=== PATIENT | female | born 1975 | race African-American/Black ===

== ENCOUNTER 2019-05-05 17:01 | Inpatient (IN) | payer OTHER ==
[~2019-05-05] VITALS: Ht 172.7 cm; Wt 63.5 kg
[2019-05-05] MEDS ORDERED: ALBUTEROL SULFATE 2.5 MG/3 ML NEBU ONE ×3 (17:08→19:04)
[2019-05-05] MEDS ORDERED: IPRATROPIUM BROMIDE 0.5 MG/2.5 ML NEBU ONE ×3 (17:08→19:04)
--- NOTE | 2019-05-05 17:12 | NUR ---
PT IS A/OX4, PRESENTS TO THE ER C/O SOB. PT IS UNABLE TO SPEAK IN FULL SENTENCES - 2/3 WORD PHRASES DUE TO SOB. PT REPORTS BEING "SICK" SINCE DECEMBER OF 2018 AND HAS BEEN HAVING EPISODES OF SOB SINCE. THIS TIME, ONSET OF SOB BEGAN APPROXIMATELY 3 DAYS AGO. PT IS HYPERTENSIVE AND TACHYPNIC AT RR 30. ER AWARE. PT ADMIN O2 3 LPM VIA N/C.
[2019-05-05] MEDS ORDERED: IPRATROPIUM BROMIDE 0.5 MG/2.5 ML NEBU NEB ONE ×3 (17:15→19:00)
[2019-05-05] MEDS ORDERED: ALBUTEROL SULFATE 2.5 MG/3 ML NEBU NEB ONE ×3 (17:15→19:00)
[2019-05-05 17:37] LABS: BASOPHILS # (AUTO) 0.1 K/uL (0.0-8.0); EOSINOPHILS # (AUTO) 0.5 K/uL (0.0-0.7); HEMATOCRIT 44.6 % (31.2-41.9); HEMOGLOBIN 14.8 g/dL (10.9-14.3); LYMPHOCYTES # (AUTO) 1.5 K/uL (20.0-40.0); LYMPHOCYTES % (AUTO) 13.1 % (20.5-51.5); MEAN CORPUSCULAR HEMOGLOBIN 29.5 uug (24.7-32.8); MEAN CORPUSCULAR HGB CONC 33 g/dL (32.3-35.6); MEAN CORPUSCULAR VOLUME 89.4 fL (75.5-95.3); MONOCYTES # (AUTO) 1.1 K/uL (2.0-10.0); MONOCYTES % (AUTO) 9.3 % (0.0-11.0); NEUTROPHILS # (AUTO) 8.4 K/uL (1.8-8.9); NEUTROPHILS % (AUTO) 72.6 % (38.5-71.5); PLATELET COUNT (AUTO) 302 K/uL (179-408); RED BLOOD CELL COUNT(AUTO) 4.99 MIL/uL (3.63-4.92); WHITE BLOOD COUNT (AUTO) 11.6 K/uL (3.8-11.8)
[2019-05-05] MEDS ORDERED: LEVOFLOXACIN 750 MG/D5W 150 ML PIGGYBACK IV ONE (17:45)
[2019-05-05] MEDS ORDERED: methylPREDNISolone SOD SUCC 125 MG/2 ML VIAL IV ONE (17:45)
[2019-05-05 17:46] LABS: CREATININE 1.1 mg/dL (0.6-1.3); POTASSIUM 3.3 mmol/L (3.5-5.1)
[2019-05-05] MEDS ORDERED: methylPREDNISolone SOD SUCC 125 MG/2 ML VIAL ONE (17:50)
[2019-05-05] MEDS ORDERED: LEVOFLOXACIN 750MG/D5W 150 ML IV ONE (17:50)
[2019-05-05 17:58] LABS: BILIRUBIN,DIRECT 0.1 mg/dL (0.0-0.2); BILIRUBIN,TOTAL 0.5 mg/dL (0.2-1.0); TOTAL PROTEIN, SERUM 7.9 g/dL (6.4-8.2)
[2019-05-05] MEDS ORDERED: hydrALAZINE HCL 20 MG/1 ML VIAL IV ONE (18:00)
[2019-05-05] MEDS ORDERED: hydrALAZINE HCL 20 MG/1 ML VIAL ONE (18:04)
[2019-05-05] MEDS ORDERED: HYDROCODONE/APAP 5-325MG TABLET PO ONE (19:00)
[2019-05-05] MEDS ORDERED: HYDROCODONE/APAP 5-325MG TABLET ONE (19:01)
[2019-05-05] MEDS ORDERED: BENA20TA9 PO (19:03)
[2019-05-05] MEDS ORDERED: HYDR50TA3 PO (19:03)
[2019-05-05] MEDS ORDERED: FLUO-120 PO (19:03)
[2019-05-05] MEDS ORDERED: ALBUTEROL SULFATE 2.5 MG/ 0.5 ML NEBU ONE (19:05)
--- NOTE | 2019-05-05 19:12 | NUR ---
SHIFT REPORT GIVEN TO ANDREW Luna RN.
[2019-05-05] MEDS ORDERED: Z GUARD REMEDY PASTE 57 GM TUBE TOP PRN (20:00)
[2019-05-05] MEDS ORDERED: MAGNESIUM HYDROXIDE 30 ML LIQUID UDC PO PRN (20:00)
[2019-05-05] MEDS ORDERED: ACETAMINOPHEN 325 MG TABLET PO PRN (20:00)
[2019-05-05] MEDS ORDERED: ONDANSETRON 4 MG/2 ML VIAL IV PRN (20:00)
--- NOTE | 2019-05-05 20:00 | NUR ---
Dr. Bryant at bedside for evaluation.
[2019-05-05 20:02] VITALS: BP 163/94
[2019-05-05 20:09] LABS: *URINE HCG, QUAL NEGATIVE (NEGATIVE)
--- NOTE | 2019-05-05 20:16 | NUR ---
Report given to JOSY Mahoney
--- NOTE | 2019-05-05 20:30 | NUR ---
Patient transported to TELE in stable condition.
[2019-05-05] MEDS: IV 1/2NS 1000 ML 1,000 ML IV PRN (21:01)
[2019-05-05] MEDS: methylPREDNISolone SOD SUCC 40 MG/ML VIAL IV SCH (21:39)
[2019-05-05] MEDS: GUAIFENESIN LA 600 MG TABLET.SA PO SCH (21:39)
[2019-05-05] MEDS ORDERED: methylPREDNISolone SOD SUCC 125 MG/2 ML VIAL IV SCH (22:00)
[2019-05-05] MEDS: HYDROCODONE/APAP 5-325MG TABLET PO PRN (22:24)
[2019-05-05 23:16] LABS: ABG BASE EXCESS 0.8 mmol/L; ABG PCO2 38.5 mmHg (35.0-45.0); ABG PO2 66.9 mmHg (75.0-100.0); ABG SITE RIGHT RADIAL; ABG TOTAL HEMOGLOBIN 15.3 G/dL (12.0-16.0); COHb 1.4 % (0.5-1.5); MetHb 0.3 % (0.0-1.5); O2Hb 91.8 % (94.0-97.0); VENT MODE Nasal Cannula
[2019-05-06 01:04] VITALS: BP 168/98
[2019-05-06] MEDS: IV 1/2NS 1000 ML 1,000 ML IV PRN (04:29)
[2019-05-06] MEDS: methylPREDNISolone SOD SUCC 40 MG/ML VIAL IV SCH ×3 (05:24→22:30)
[2019-05-06] MEDS: HYDROCODONE/APAP 10-325 MG TABLET PO PRN ×2 (05:25→15:57)
[2019-05-06] MEDS: IPRATROPIUM BROMIDE 0.5 MG/2.5 ML NEBU NEB PRN ×3 (05:34→23:07)
[2019-05-06] MEDS: ALBUTEROL SULFATE 2.5 MG/3 ML NEBU NEB PRN ×3 (05:34→23:08)
[2019-05-06] MEDS ORDERED: CLONIDINE HCL 0.1 MG TABLET PO ONE (05:45)
[2019-05-06 06:21] VITALS: BP 181/112
--- NOTE | 2019-05-06 06:24 | NUR ---
Patient rested fairly; c/o pain 2x and addressed accordingly; BP this AM is elevated at 180/110, referred to MARTINEZ Rucker and ordered clonidine PO x1; assisted with needs; HHN per RT remains on O2 mask at 10 liters with pt taking it off occasionally; needs attended; continue to monitor.
[2019-05-06 07:12] LABS: BASOPHILS % (AUTO) 0.3 % (0.0-2.0); HEMATOCRIT 43.5 % (31.2-41.9); HEMOGLOBIN 14.7 g/dL (10.9-14.3); LYMPHOCYTES # (AUTO) 0.8 K/uL (20.0-40.0); LYMPHOCYTES % (AUTO) 13.2 % (20.5-51.5); MEAN CORPUSCULAR HEMOGLOBIN 29.9 uug (24.7-32.8); MEAN CORPUSCULAR HGB CONC 34 g/dL (32.3-35.6); MEAN CORPUSCULAR VOLUME 88.5 fL (75.5-95.3); MONOCYTES # (AUTO) 0.1 K/uL (2.0-10.0); MONOCYTES % (AUTO) 1.3 % (0.0-11.0); NEUTROPHILS # (AUTO) 5.1 K/uL (1.8-8.9); NEUTROPHILS % (AUTO) 85.2 % (38.5-71.5); PLATELET COUNT (AUTO) 334 K/uL (179-408); RED BLOOD CELL COUNT(AUTO) 4.92 MIL/uL (3.63-4.92)
[2019-05-06 07:24] LABS: CREATININE 1.1 mg/dL (0.6-1.3); MAGNESIUM 1.8 mg/dL (1.8-2.4); PHOSPHOROUS 4.3 mg/dL (2.5-4.9); POTASSIUM 3.8 mmol/L (3.5-5.1)
--- NOTE | 2019-05-06 07:25 | NUR ---
RECEIVED PATIENT LAYING IN BED.PATIENT ALERT AND ORIENTED X4. NO ACUTE DISTRESS NOTED AT THIS TIME. PATIENT DENIES PAIN AND DISCOMFORT. BED IN LOWEST POSITION, SIDE RAILS UP X2, CALL LIGHT WITHIN REACH. WILL CONTINUE TO MONITOR.
[2019-05-06 07:37] LABS: THYROID STIMULATING HORMONE 0.314 mIU/mL (0.358-3.740)
[2019-05-06] MEDS: GUAIFENESIN LA 600 MG TABLET.SA PO SCH ×2 (08:35→20:33)
[2019-05-06] MEDS: HYDROCODONE/APAP 5-325MG TABLET PO PRN (10:50)
[2019-05-06 11:10] VITALS: BP 143/80
[2019-05-06] MEDS: AZITHROMYCIN IV 500 MG in IV DEXTROSE 5% 250 ML IV SCH (17:15)
[2019-05-06] MEDS: CEFTRIAXONE 1 G in IV DEXTROSE 5% 50 ML IV SCH (18:10)
[2019-05-06 18:31] VITALS: BP 139/97
--- NOTE | 2019-05-06 18:39 | NUR ---
PATIENT RESTED THROUGHOUT SHIFT. NO ACUTE DISTRESS NOTED THROUGHOUT SHIFT. PATIENT REPORTED PAIN, PRN MEDIATION GIVE. PATIENT RECEIVED BREATHING TREATMENT Q6HRS.
--- NOTE | 2019-05-06 19:30 | NUR ---
Received patient in bed AAOx4. On O2 at 8Lpm via mask saturating at 97%. Patient still noted w/ episode of coughing. No complaints of pain at this time. IV site on L AC intact and patent w/ IVF infusing. Safety measures observed. Call light within reach
[2019-05-06] MEDS: CULTURELLE CAPSULE PO SCH (20:33)
[2019-05-06 23:11] VITALS: BP 152/92
[2019-05-07] MEDS: IV 1/2NS 1000 ML 1,000 ML IV PRN ×2 (00:32→17:41)
[2019-05-07] MEDS: HYDROCODONE/APAP 10-325 MG TABLET PO PRN ×2 (03:22→21:57)
--- NOTE | 2019-05-07 04:05 | NUR ---
Patient complained of 8/10 generalized body pain, PRN [place] 10-325mg PO given.
[2019-05-07 05:28] VITALS: BP 157/94
[2019-05-07] MEDS: methylPREDNISolone SOD SUCC 40 MG/ML VIAL IV SCH ×3 (05:46→21:57)
--- NOTE | 2019-05-07 06:22 | NUR ---
Patient slept intermittently. No SOB noted, not in distress. Breathing tx given Q6. All needs attended. Will endorse accordingly.
--- NOTE | 2019-05-07 07:20 | NUR ---
RECEIVED PATIENT LAYING IN BED SLEEPING. NO ACUTE DISTRESS NOTED AT THIS TIME. PATIENT DENIES PAIN AND DISCOMFORT. BED IN LOWEST POSITION, SIDE RAILS UP X2, CALL LIGHT WITHIN REACH. WILL CONTINUE TO MONITOR.
[2019-05-07] MEDS: GUAIFENESIN LA 600 MG TABLET.SA PO SCH ×2 (08:26→20:13)
[2019-05-07] MEDS: CULTURELLE CAPSULE PO SCH ×2 (08:26→20:12)
[2019-05-07] MEDS: HYDROCODONE/APAP 5-325MG TABLET PO PRN ×2 (08:30→13:24)
--- NOTE | 2019-05-07 09:10 | NUR ---
RECEIVED PATIENT LAYING IN BED RESTING. NO ACUTE DISTRESS NOTED AT THIS TIME. PATIENT DENIES PAIN AND DISCOMFORT. BED IN LOWEST POSITION, SIDE RAILS UP X2, CALL LIGHT WITHIN REACH. WILL CONTINUE TO MONITOR.
[2019-05-07 11:30] VITALS: BP 172/98
--- NOTE | 2019-05-07 11:30 | NUR ---
PT'S BP IS 172/98 HR 75. PT CURRENTLY DOES NOT HAVE ANY BP MEDS ORDERED. WILL CONTACT MD TO INFORM OF PT'S CURRENT CONDITION. PT IS ASYMPTOMATIC AT THIS TIME. NO ACUTE DISTRESS NOTED.
--- NOTE | 2019-05-07 11:35 | NUR ---
MRD ORDERED HYDROCHLOROTHIAZIDE 25MG PO Q DAY. NO ACUTE DISTRESS NOTED. WILL CONTINUE TO MONITOR.
[2019-05-07] MEDS: HYDROCHLOROTHIAZIDE 25 MG TABLET PO SCH (11:50)
--- NOTE | 2019-05-07 13:00 | NUR ---
PT IS RESTING COMFORTABLY IN BED. PT HAS PRODUCTIVE COUGH DARK YELLOW THICK SPUTUM. PT COMPLAINS OF CHEST AND BACK PAIN WHEN COUGHING. NO ACUTE DISTRESS NOTED. WILL CONTINUE TO MONITOR.
[2019-05-07] MEDS: IPRATROPIUM BROMIDE 0.5 MG/2.5 ML NEBU NEB PRN ×2 (13:56→20:33)
[2019-05-07] MEDS: ALBUTEROL SULFATE 2.5 MG/3 ML NEBU NEB PRN ×2 (13:56→20:33)
--- NOTE | 2019-05-07 14:15 | NUR ---
RESPIRATORY TX GIVEN BY RT PT STATED FEELING SOB. SOB HAS SUBSIDED. COUGH IS PRODUCTIVE. NO ACUTE DISTRESS NOTED AT THIS TIME. WILL CONTINUE TO MONITOR.
[2019-05-07 15:16] VITALS: BP 153/106
[2019-05-07] MEDS: AZITHROMYCIN IV 500 MG in IV DEXTROSE 5% 250 ML IV SCH (16:22)
[2019-05-07] MEDS: CEFTRIAXONE 1 G in IV DEXTROSE 5% 50 ML IV SCH (17:41)
--- NOTE | 2019-05-07 18:11 | NUR ---
PT IS RESTING COMFORTABLY IN ROOM. NO SOB OR ACUTE DISTRESS NOTED AT THIS TIME. PT IS MEDICATION COMPLIANT. PLEASANT AND COOPERATIVE. PT'S COUGHING HAS LESSENED. PT IS ON N/C AT 6 L/M. CALL LIGHT WITHIN REACH. NEEDS MET. WILL GIVE REPORT TO INCOMING SHIFT ACCORDINGLY.
--- NOTE | 2019-05-07 19:51 | NUR ---
Received awake sitting up on the bed with legs dangling. Alert and oriented x 4, ambulatory. With oxygen support at 6lpm via nasal cannula, maintained. Not in any form of distress. No complaints at the moment. Noted with IV access on the left AC to ongoing IV fluid, infusing well. Bed in low position, locked, side rails up x2 for safety, call light within reach. Will continue to monitor.
[2019-05-07 20:18] VITALS: BP 153/98
[2019-05-07] MEDS: BENZOCAINE/MENTH/CETYLPYRD LOZENGE MM PRN (22:33)
[2019-05-08] MEDS: BENZOCAINE/MENTH/CETYLPYRD LOZENGE MM PRN ×3 (00:37→11:16)
[2019-05-08] MEDS: IV 1/2NS 1000 ML 1,000 ML IV PRN ×2 (02:16→11:17)
[2019-05-08] MEDS: HYDROCODONE/APAP 10-325 MG TABLET PO PRN ×2 (04:14→11:17)
[2019-05-08 04:30] VITALS: BP 183/98
--- NOTE | 2019-05-08 04:56 | NUR ---
Noted with elevated blood pressure, 183/98. Rechecked after 15minutes, BP still elevated at 188/112. Contacted parts control clerk provider, Marcia Rucker NP who ordered to give patient Clonidine 0.1mg P.O. one time order.
[2019-05-08] MEDS ORDERED: CLONIDINE HCL 0.1 MG TABLET PO ONE (05:00)
[2019-05-08] MEDS: methylPREDNISolone SOD SUCC 40 MG/ML VIAL IV SCH ×2 (05:11→14:00)
--- NOTE | 2019-05-08 05:37 | NUR ---
Patient slept intermittently throughout the night. Noted with frequent coughing, patient already complaining of sore throat, cepacol lozenges started as ordered by Dr. Bryant last night. With complaints of back and chest pain from frequent coughing, prn pain medication given. Will do a blood pressure recheck 1 hour from Clonidine dose. Attended all needs. Ensured safety and comfort.
[2019-05-08 06:46] VITALS: BP 157/91
--- NOTE | 2019-05-08 08:00 | NUR ---
Received awake resting in bed alert and oriented x 4, ambulatory. oxygen at 6 L via nasal cannula, maintained. Not in any form of distress. No complaints at the moment. Noted with IV access on the left AC to ongoing IV fluid, infusing well. Bed in low position, locked, side rails up x2 for safety, call light within reach. Will continue to monitor.
[2019-05-08] MEDS: CULTURELLE CAPSULE PO SCH (08:51)
[2019-05-08] MEDS: GUAIFENESIN LA 600 MG TABLET.SA PO SCH (08:51)
[2019-05-08] MEDS: HYDROCHLOROTHIAZIDE 25 MG TABLET PO SCH (08:51)
[2019-05-08 11:46] VITALS: BP 151/93
--- NOTE | 2019-05-08 11:53 | NUR ---
prn norco given for 10/10 pain. PRN lozenge given to suppress cough. Pt. has not had any coughing episodes. Informed pt. on discharge by Dr. Sevilla today. Safety measures in place. Will continue to monitor pt.
[2019-05-08 12:11] VITALS: BP 174/103
--- NOTE | 2019-05-08 13:00 | NUR ---
Pt. stated she will be picked up by family member in the next hour. All discharge papers printed and signed. Belongings list signed and with patient. BP is elevated; is aware. Will continue to monitor pt. until discharge.
[2019-05-08 14:45] VITALS: BP 164/107
--- NOTE | 2019-05-08 15:48 | NUR ---
Pt. stated she wanted to go home by bus and now changed her mind and said family member is going to mushroom picker pt. and take pt. home to apartment in [place]. Pt. removed IV access by self. Assesed, cleaned, and put gauze on IV site. Awaiting mushroom picker by family member.
--- NOTE | 2019-05-08 16:20 | NUR ---
Walked pt. downstairs with belongings. Pt. is stable. Pt. discharged home and picked up by family member.
== END 2019-05-08 16:30 | disposition home or self-care (01) | DRG 139 ==
LOC: ER 17:01 → TELE3 20:19 → MEDSURG3 05-06 14:30
DX: J15.9 Unspecified bacterial pneumonia (principal); J96.01 Acute respiratory failure with hypoxia; F17.210 Nicotine dependence, cigarettes, uncomplicated; E87.6 Hypokalemia; I10 Essential (primary) hypertension; M41.9 Scoliosis, unspecified; Z87.09 Personal history of other diseases of the respiratory system
CPT/HCPCS: 36415; 36600; 70030-TC; 71045; 83735; 84100; 84443; 84703; 85025; 85730; 87040; 93005; 94640; 94664; A4663; G0378; J0360; J0456; J0696; J1956; J2405; J2920; J2930; J3490; J3590; J7030; J7060